=== PATIENT | female | born 1930 | race Caucasian/White ===

== ENCOUNTER 2017-12-07 10:33 | Day surgery (SDC) | payer OTHER ==
[~2017-12-07] VITALS: Ht 165.1 cm; Wt 78.2 kg
[~2017-12-07 10:33] MED LIST: ALLO300 PO; ASPI81EC PO; CALCAVITDA PO; CYAN100 PO; FAMO20 PO; FENT25TP TOP; FOLI1 PO; HYDCHL25 PO; LEVFLO500 PO; LEVSOD125 PO; LISI20 PO; MULVITA PO; PROM25 PO; PYRI100 PO; ROSU10TA PO
[2017-12-07] MEDS ORDERED: METO25ER PO (11:12)
[2017-12-07] MEDS ORDERED: LEVSOD75 PO (11:13)
[2017-12-07] MEDS ORDERED: BUME1 PO (11:14)
[2017-12-07] MEDS ORDERED: HYDR1TAB94 PO (11:14)
[2017-12-07] MEDS ORDERED: BENA20 PO (11:15)
== END 2017-12-07 12:36 | disposition home or self-care (01) ==
LOC: ORSCSDS 10:33
PROVIDERS: Internal Medicine Gastroenterology
PROC: 0DJ08ZZ Inspection of Upper Intestinal Tract, Via Natural or Artificial Opening Endoscopic (ICD-10-PCS; principal; 2017-12-07 12:00)
DX: R13.10 Dysphagia, unspecified (principal); E11.22 Type 2 diabetes mellitus with diabetic chronic kidney disease; I12.9 Hypertensive chronic kidney disease with stage 1 through stage 4 chronic kidney disease, or unspecified chronic kidney disease; N18.9 Chronic kidney disease, unspecified; E03.9 Hypothyroidism, unspecified; J45.909 Unspecified asthma, uncomplicated; Z79.82 Long term (current) use of aspirin; Z79.899 Other long term (current) drug therapy
CPT/HCPCS: 82947; J7120